=== PATIENT | male | born 1955 | race Caucasian/White ===

== ENCOUNTER → 2020-01-12 | Emergency (ER) | payer MEDICARE, MEDICAID ==
[~2020-01-12] VITALS: Ht 170.2 cm; Wt 90.7 kg
[2020-01-12 10:50] LABS: Basophils # (auto) 0.1 10 ^3/uL (0-0.2); Eosinophils # (auto) 0.1 10 ^3/uL (0-0.8); Monocytes # (auto) 0.5 10 ^3/uL (0-1.3); Monocytes % (auto) 5.4 % (0.0-12.0); Nucleated Red Blood Cells % 0.2 %; White Blood Cell 9.9 10^3/uL (4.4-10.8)
[2020-01-12 10:52] LABS: Basophils % (auto) 0.7 % (0.0-2.0); Eosinophils % (auto) 0.7 % (0.0-7.0); Hematocrit 46.7 % (41.0-53.0); Hemoglobin 16.3 g/dL (13.5-17.5); Lymphocytes # (auto) 1.5 10 ^3/uL (0.4-5.4); Lymphocytes % (auto) 14.7 % (10.0-50.0); Mean Corpuscular Hemoglobin 34.8 pg (28.0-32.0); Mean Corpuscular Hgb Conc. 34.9 g/dL (32.0-36.0); Mean Corpuscular Volume 99.8 fL (80.0-100.0); Neutrophils # (auto) 7.8 10 ^3/uL (1.6-8.6); Neutrophils % (auto) 78.5 % (37.0-80.0); Platelet Count (auto) 95 10^3/uL (140-450); Red Blood Cells 4.68 10^6/uL (4.5-5.90); Red Cell Distribution Width 13.7 % (11.8-14.3)
[2020-01-12 10:59] LABS: Albumin 3.3 g/dL (3.4-5.0); Calcium 8.7 mg/dL (8.5-10.1); Potassium 4.1 mmol/L (3.5-5.1)
[2020-01-12 11:03] LABS: BUN/Creatinine Ratio 11.8; Total Protein 6.8 g/dL (6.4-8.2)
[2020-01-12 11:06] LABS: INR 1.33 (0.9-1.15); Partial Thromboplastin Time 31.6 sec (23.0-31.2)
[2020-01-12 11:12] LABS: Lactic Acid w/Reflex 2.6 mmol/L (0.4-2.0)
[2020-01-12 15:32] VITALS: BP 152/58
== END | disposition home or self-care (01) ==
LOC: ER 09:38 → EDBD 09:38
DX: K70.9 Alcoholic liver disease, unspecified (principal); I10 Essential (primary) hypertension; E44.1 Mild protein-calorie malnutrition; F12.10 Cannabis abuse, uncomplicated; Z68.31 Body mass index [BMI] 31.0-31.9, adult
CPT/HCPCS: 36415; 74176; 80053; 82140; 83605; 83690; 85025; 85610; 85730; 87040